=== PATIENT | male | born 1965 | race Caucasian/White ===

== ENCOUNTER 2024-02-03 19:58 | Emergency (ER) | payer BC, SELFPAY ==
[2024-02-03 19:59] VITALS: BP 128/86
[2024-02-03] MEDS: AUGMENTIN 875 MG/125 MG 1 TABLET PO (22:05)
--- NOTE | 2024-02-03 22:52 | ED.SKININJ ---
HPI-Injury
General
Chief Complaint: Bite
Source: patient and spouse
Exam Limitations: none
Time Seen by Provider: 02/03/24 21:05
Nursing documentation reviewed up to this point in time: agreed with
Travel History
Have you had any contact with someone who has COVID-19?: No
Do you have any symptoms of coronavirus? Fever > 100 degrees, chills, cough, shortness of breath, sore throat, loss of taste or smell, muscle aches, or headache?: No
History of Present Illness-Injury
Is this injury a work related problem?: No
Is pt an associate of [facility]?: No
Initial Injury comments:
58-year-old male with past medical history of hypertension previous heart attack with stent currently on Plavix presenting to the emergency department today with concerns of a dog bite to the right index finger as well as more superficial cuts to
the remainder of the hand. This occurred when his dog was approaching a neighbors dog there was a confrontation. The patient went to break up the fight of the dogs and was bit he is unsure if this was from his dog or the other dog's dog is
up-to-date with rabies vaccinations and he believes that the other dog likely was as well and is a domestic dog of one of his neighbors. He is able to follow-up with this dog for observation. He is not sure when his last tetanus shot was. He does
claim to have significant bleeding to the area and less he is directly holding pressure to the area.
Past History
Past History
ED Past Medical History: HTN, Hypercholesterolemia and IN
ED Past Surgical History: None
Social History
Tobacco: Former smoker
Alcohol: Occasional
Drug: None
Personal:
Living: with family
Review of Systems
Review of Systems
Allergies reviewed?: Yes
All Other Systems: ROS reviewed and negative except as documented in HPI and ROS
Phy Exam
Physical Exam
Physical Exam:
GENERAL: Alert , in no apparent distress
EYE: pupils equal and reactive
NECK: Supple, no significant adenopathy.
ENT: o/p clr, mmm.
CARDIAC: Normal distal perfusion
LUNGS: Clear breath sounds bilaterally, no acute respiratory distress, no wheezes/rales/rhonchi
ABDOMEN: Soft, without focal tenderness, no r/g, no cvat
NEUROLOGICAL: Alert and oriented, no focal neuro deficits
SKIN: Laceration 1.5 cm to the distal index finger just distal to the DIP on the palmar aspect. Explored to its base no foreign body warm and dry, skin intact.
MUSCULOSKELETAL: No edema, well perfused.
PSYCH: Normal and appropriate interaction.
Course
Orders/Labs/Results
Orders:
Orders
02/03/24 21:44
CR Hand - Right Min 3 Views Urgent
Comment:
Reason For Exam: dog bite
02/03/24 21:57
Amoxicillin 875 mg/Clav 125 mg [Augmentin 875 mg/125 mg] 1 tablet PO NOW STA
02/03/24 23:03
Tetanus/Diphth/Acelpertussis [Adacel] 0.5 ml IM .ONCE ONE
Vital Signs
Initial and Last Documented VS:
Initial Vital Signs
Temp Pulse Resp BP Pulse Ox
98.4 F 104 22 128/86 95
02/03/24 19:59 02/03/24 19:59 02/03/24 19:59 02/03/24 19:59 02/03/24 19:59
Last Documented Vital Signs
Temp Pulse Resp BP Pulse Ox
98.4 F 81 22 126/80 95
02/03/24 19:59 02/03/24 23:15 02/03/24 19:59 02/03/24 23:15 02/03/24 19:59
Procedures
Laceration Closure
Left Palmar Second Finger:
Status of Wound: clean
Size of Wound in cm: 1.5
Description of Wound Edges: sharp
Preparation: cleaned with saline
Anesthesia: 2% Lidocaine and Digital-Regional
Revision/Debridement: routine- no revision and irrigate-direct pressure
Wound exploration: explored to base- no FB and no tendon involvement
Type of Closure: single layer closure
Skin Closure Material: 4-0 chromic gut
Number of sutures: 3
MDM/Problems Addressed
MDM/Problems Addressed:
58-year-old male presenting to the emergency department today with concerns of dog bite to his left index finger as well as small cuts to the remainder of his hand. There was significant bleeding to the area this was sutured to control bleeding but
otherwise partially left open due to the potential infection risk of a dog bite. He was started immediately on Augmentin and x-ray was performed without signs of fracture. He was given a splint to help protect the area and was given very strict
return precautions for any signs of infection otherwise recommended for close outpatient follow-up. Return precautions given. He was given an updated tetanus shot. Patient very low risk for rabies will follow-up with the neighbors dog in regard
to to this.
*Critical Care Note
Total Time (30-74mins, 75-104mins- exclusive of procedures): Not Applicable
ED Attending Note
-
Portions of this chart may have been created with voice recognition software.� Occasional wrong word or��sound alike� substitutions may have occurred due to the inherent limitations of voice recognition software.
Discharge Plan
Departure
Patient Disposition: Home (Routine Discharge)
Date of Disposition: 02/03/24
Time of Disposition: 22:52
Patient with high blood pressure during this ER visit?: No
Condition: Good
Covid-19: Not Applicable
Discharge Problem:
Dog bite of finger
Instructions: Animal and human bites
Prescriptions:
New
amoxicillin-pot clavulanate 875-125 mg tablet
1 tab PO BID 3 Days Qty: 6 0RF
No Action
atorvastatin 40 MG tablet
40 mg PO QPM Qty: 30 11RF
aspirin 81 MG tablet,delayed release (DR/EC)
81 mg PO DAILY 0RF
candesartan 16 MG tablet
16 mg PO DAILY Qty: 30 11RF
metoprolol succinate 25 MG tablet extended release 24 hr
25 mg PO DAILY Qty: 30 11RF
ticagrelor [Brilinta] 90 MG tablet
90 mg PO 0600,1800 Qty: 60 11RF
famotidine 20 MG tablet
20 mg PO BID Qty: 28 0RF
Rx Instructions:
Take 20 mg twice a day for 14 days
ascorbic acid (vitamin C) [Vitamin C] 500 MG tablet
1,000 mg PO BID Qty: 56 0RF
Rx Instructions:
Take 1,000 mg twice a day for 14 days
aspirin 81 MG tablet,chewable
81 mg PO DAILY Qty: 14 0RF
Rx Instructions:
Take 81 mg daily for 14 days
zinc sulfate 220 MG capsule
220 mg PO DAILY Qty: 14 0RF
Rx Instructions:
Take 220 mg daily for 14 days
cholecalciferol (vitamin D3) 1,000 UNITS tablet
2,000 units PO DAILY Qty: 28 0RF
Rx Instructions:
Take 2,000 units daily for 14 days
melatonin 5 MG tablet
5 mg PO HS Qty: 14 0RF
Rx Instructions:
Take 5 mg daily at bedtime for 14 days
diazepam 5 mg tablet
5 mg PO TID PRN (Reason: muscle spasm) Qty: 10 0RF
diclofenac sodium 75 mg tablet,delayed release (DR/EC)
75 mg PO BID Qty: 20 0RF
Referrals:
Misbah Henao MD [Family Provider] -
Francisco Owens MD [Active] - As needed
Activity Restrictions/Additional Instructions:
You came to the emergency department today after dog bite to your finger. This does not appear to require a rabies vaccination. Otherwise your x-ray did not show any emergent findings your finger was cleaned and 3 sutures were placed. These are
absorbable. Please follow closely for reassessment to ensure this is not not showing any signs of infection. Return to the emergency department any worsening, new or concerning symptoms.
Interventions
Interventions:
*Risk Screen - Suicide Last Done: 02/03/24 19:59
*General Assessment Last Done: 02/03/24 22:09
*Neglect/Abuse Screening Last Done: 02/03/24 19:59
*ED COVID-19 Vaccine History Last Done: 02/03/24 22:09
*Nursing Disposition Last Done: 02/03/24 23:15
ED-Skin Assessment Last Done: 02/03/24 22:08
Discharge Date and Time
Discharge Date/Time: 02/03/24 23:15
[2024-02-03] MEDS: ADACEL 0.5 ML IM (23:10)
[2024-02-03 23:13] VITALS: BP 126/80
[2024-02-03 23:15] VITALS: BP 126/80
== END 2024-02-03 23:15 | disposition home or self-care (01) ==
LOC: EMR 19:58
PROVIDERS: EMERGENCY PHYSICIAN Emergency Medicine; FAMILY PHYSICIAN Family Medicine
DX: S61.259A Open bite of unspecified finger without damage to nail, initial encounter (principal); W54.0XXA Bitten by dog, initial encounter; Z23 Encounter for immunization; I10 Essential (primary) hypertension; E78.00 Pure hypercholesterolemia, unspecified; I25.2 Old myocardial infarction; Z79.02 Long term (current) use of antithrombotics/antiplatelets; Z87.891 Personal history of nicotine dependence
CPT/HCPCS: 99283; 12001; 90471; 73130; 90715

== ENCOUNTER → 2025-01-23 10:45 | Outpatient (REF) | payer BC, SELFPAY ==
[2025-01-23 11:23] LABS: % Basophils 0.6 % (0-2); % Eosinophils 1.8 % (0-6); % Immature Granulocytes 0.2 % (0-0.5); % Lymphocytes 32.1 % (20.5-51.1); % Monocytes 9.1 % (1.7-9.3); % Neutrophils 56.2 % (42.2-75.2); Absolute Eosinophils 0.1 10^3/uL (0-0.7); Absolute Monocytes 0.6 10^3/uL (0.1-0.6); Absolute Neutrophils 3.5 10^3/uL (1.4-6.5); Hematocrit 40.4 % (39.0-52.0); Hemoglobin 14.3 g/dL (13.0-18.0); Mean Corp Hgb Conc. 35.4 g/dL (33.0-37.0); Mean Corpuscular Hgb 30.6 pg (27.0-31.0); Mean Corpuscular Volume 86.3 fL (80.0-94.0); Mean Platelet Volume 10.2 fL (7.4-10.4); Nucleated Red Blood Cells % 0 % (-); Platelet Count 225 10^3/uL (130-400); Red Blood Cell Count 4.68 10^6/uL (4.70-6.10); Red Cell Dist. Width 13.2 % (11.5-14.5); White Blood Cell Count 6.2 10^3/uL (4.8-10.8)
[2025-01-23 11:54] LABS: ALT (SGPT) 102 U/L (0-50); AST (SGOT) 52 U/L (17-59); Alkaline Phosphatase 54 U/L (38-126); Blood Urea Nitrogen 23 mg/dl (9-20); Calcium 9.5 mg/dl (8.4-10.2); Carbon Dioxide 27 mmol/L (22-30); Chloride 101 mmol/L (98-107); Glucose 131 mg/dl (70-99); HDL Cholesterol 58 mg/dl; LDL Cholesterol, Calculated 121 mg/dl; Potassium 4.5 mmol/L (3.5-5.1); Sodium 138 mmol/L (135-145); Total Bilirubin 0.9 mg/dl (0.2-1.3); Total Cholesterol 210 mg/dl (50-199); Total Protein 7.5 g/dl (6.3-8.2); Triglyceride 155 mg/dl (10-149); Very Low Density Lipoprotein 31 mg/dl (0-30); eGFR > 60.00
[2025-01-23 12:24] LABS: PSA, Total - Screen 1.09 ng/ml (0.0-4.0); TSH Reflex To Free T4 2.19 uIU/ml (0.47-4.68)
[2025-01-23 12:46] LABS: Glycohemoglobin (HgbA1c) 8.3 % (4.0-5.6)
== END ==
LOC: REG 10:45
PROVIDERS: ATTENDING PHYSICIAN Nurse Practitioner Family
DX: I10 Essential (primary) hypertension (principal); I25.5 Ischemic cardiomyopathy; E78.00 Pure hypercholesterolemia, unspecified; R73.09 Other abnormal glucose
CPT/HCPCS: 36415; 80053; 80061; 83036; 84443; 85025; G0103

== ENCOUNTER 2025-09-17 01:27 | Emergency (ER) | payer BC, SELFPAY ==
[2025-09-17 01:33] VITALS: BP 155/106
--- NOTE | 2025-09-17 02:36 | ED.GENMED ---
History of Present Illness
General
Chief Complaint: Eye Problems
Source: patient and spouse
Exam Limitations: none
Time Seen by Provider: 09/17/25 01:40
Nursing documentation reviewed up to this point in time: agreed with
History of Present Illness
History of Present Illness:
59-year-old male presenting to the emergency department today with concerns of bilateral eye irritation and redness and tearing. He claims that he thinks things may have gotten into his eye when he was working on his son's car a few days ago.
Denies additional symptoms otherwise.
Past History
Past History
ED Past Medical History: HTN, Hypercholesterolemia and ME
ED Past Surgical History: None
Social History
Tobacco: Former smoker
Alcohol: Occasional
Drug: None
Personal:
Living: with family
Review of Systems
Review of Systems
Allergies reviewed?: Yes
All Other Systems: ROS reviewed and negative except as documented in HPI and ROS
Phy Exam
Physical Exam
Physical Exam:
GENERAL: Alert , in no apparent distress
EYE: Redness and irritation to the bilateral eyes right side worse than the left. Normal pupil reaction normal extraocular movements no redness or swelling of the surrounding tissue, pupils equal and reactive
NECK: Supple, no significant adenopathy.
ENT: o/p clr, mmm.
CARDIAC: Regular rate and rhythm .
LUNGS: Clear breath sounds bilaterally, no acute respiratory distress, no wheezes/rales/rhonchi
ABDOMEN: Soft, without focal tenderness, no r/g, no cvat
NEUROLOGICAL: Alert and oriented, no focal neuro deficits
SKIN: Warm and dry, skin intact.
MUSCULOSKELETAL: No edema, well perfused.
PSYCH: Normal and appropriate interaction.
Course
Orders/Labs/Results
Orders:
Orders
09/17/25 02:31
Erythromycin (Ilotycin) [Erythromycin 0.5% Ophthalmic Ointment] See Dose Instructions OPHTH NOW STA
Vital Signs
Initial and Last Documented VS:
Initial Vital Signs
Temp Pulse BP Pulse Ox
98.1 F 73 155/106 97
09/17/25 01:33 09/17/25 01:33 09/17/25 01:33 09/17/25 01:33
Last Documented Vital Signs
Temp Pulse Resp BP Pulse Ox
98.1 F 73 20 155/106 97
09/17/25 01:33 09/17/25 01:33 09/17/25 01:47 09/17/25 01:33 09/17/25 02:36
MDM/Problems Addressed
MDM/Problems Addressed:
59-year-old male presenting to the emergency department today with concerns of bilateral eye redness irritation and pain. Feels a foreign body to the right eye. Was working on a car a few days ago thinks things may have gotten into his eye. On
examination patient was found have a small foreign body to the right eye after lid eversion. Also appear to have potential superficial corneal abrasion on the right side. Left eye without signs of foreign body or corneal abrasion. He started on
erythromycin ointment. He did have complete resolution of pain after administration of tetra otherwise advised to see ophthalmology today for reassessment.
*Pulse Oximetry
SaO2: 97
Oxygen Mode of Delivery: Room air
Patient hypoxic: no (97)
*Critical Care Note
Total Time (30-74mins, 75-104mins- exclusive of procedures): Not Applicable
ED Attending Note
-
Portions of this chart may have been created with voice recognition software.� Occasional wrong word or��sound alike� substitutions may have occurred due to the inherent limitations of voice recognition software.
Discharge Plan
Departure
Patient Disposition: Home (Routine Discharge)
Date of Disposition: 09/17/25
Time of Disposition: 02:42
Patient with high blood pressure during this ER visit?: No
Condition: Good
Covid-19: Not Applicable
Discharge Problem:
Eye foreign body, Corneal abrasion
Instructions: How to Use Eye Drops, Foreign Body in Eye (DC)
Prescriptions:
No Action
atorvastatin 40 MG tablet
40 mg PO QPM Qty: 30 11RF
aspirin 81 MG tablet,delayed release (DR/EC)
81 mg PO DAILY 0RF
candesartan 16 MG tablet
16 mg PO DAILY Qty: 30 11RF
metoprolol succinate 25 MG tablet extended release 24 hr
25 mg PO DAILY Qty: 30 11RF
ticagrelor [Brilinta] 90 MG tablet
90 mg PO 0600,1800 Qty: 60 11RF
famotidine 20 MG tablet
20 mg PO BID Qty: 28 0RF
Rx Instructions:
Take 20 mg twice a day for 14 days
ascorbic acid (vitamin C) [Vitamin C] 500 MG tablet
1,000 mg PO BID Qty: 56 0RF
Rx Instructions:
Take 1,000 mg twice a day for 14 days
aspirin 81 MG tablet,chewable
81 mg PO DAILY Qty: 14 0RF
Rx Instructions:
Take 81 mg daily for 14 days
zinc sulfate 220 MG capsule
220 mg PO DAILY Qty: 14 0RF
Rx Instructions:
Take 220 mg daily for 14 days
cholecalciferol (vitamin D3) 1,000 UNITS tablet
2,000 units PO DAILY Qty: 28 0RF
Rx Instructions:
Take 2,000 units daily for 14 days
melatonin 5 MG tablet
5 mg PO HS Qty: 14 0RF
Rx Instructions:
Take 5 mg daily at bedtime for 14 days
diazepam 5 mg tablet
5 mg PO TID PRN (Reason: muscle spasm) Qty: 10 0RF
diclofenac sodium 75 mg tablet,delayed release (DR/EC)
75 mg PO BID Qty: 20 0RF
amoxicillin-pot clavulanate 875-125 mg tablet
1 tab PO BID 3 Days Qty: 6 0RF
Referrals:
Christian Stanton I., DO [Family Provider, Internal Medicine]
Activity Restrictions/Additional Instructions:
You came to the emergency department today with concerns of irritation to your eye. You are found have a small foreign body that was removed. You could also have a superficial corneal abrasion. Please use the erythromycin eye ointment and
follow-up closely with the eye doctor. Return for any worsening, new or concerning symptoms.
Interventions
Interventions:
*Risk Screen - Suicide Last Done: 09/17/25 01:33
*General Assessment Last Done: 09/17/25 01:33
*Neglect/Abuse Screening Last Done: 09/17/25 01:33
*ED- Fall Risk Assessment Last Done: 09/17/25 01:33
*ED COVID-19 Vaccine History Last Done: 09/17/25 01:33
*ED Influenza Vaccine History Last Done: 09/17/25 01:33
Discharge Date and Time
Print Language: [id number]
[2025-09-17] MEDS: ERYTHROMYCIN 0.5% OPHTHALMIC OINTMENT 1 APPLIC OPHTH (03:09)
== END 2025-09-17 03:13 | disposition home or self-care (01) ==
LOC: EMR 01:27
PROVIDERS: EMERGENCY PHYSICIAN Student in an Organized Health Care Education/Training Program; FAMILY PHYSICIAN Internal Medicine
DX: S05.00XA Injury of conjunctiva and corneal abrasion without foreign body, unspecified eye, initial encounter (principal); W44.9XXA Unspecified foreign body entering into or through a natural orifice, initial encounter; H57.13 Ocular pain, bilateral; I10 Essential (primary) hypertension; E78.00 Pure hypercholesterolemia, unspecified; I25.2 Old myocardial infarction; Z87.891 Personal history of nicotine dependence
CPT/HCPCS: 99282

== ENCOUNTER → 2025-10-23 09:25 | Outpatient (REF) | payer BC, SELFPAY ==
[2025-10-23 11:02] LABS: ALT (SGPT) 92 U/L (0-50); AST (SGOT) 47 U/L (17-59); Albumin 4.9 g/dl (3.5-5.0); Alkaline Phosphatase 55 U/L (38-126); Blood Urea Nitrogen 25 mg/dl (9-20); Calcium 9.3 mg/dl (8.4-10.2); Carbon Dioxide 25 mmol/L (22-30); Chloride 102 mmol/L (98-107); Glucose 127 mg/dl (70-99); HDL Cholesterol 61 mg/dl; LDL Cholesterol, Calculated 149 mg/dl; Potassium 4.4 mmol/L (3.5-5.1); Sodium 137 mmol/L (135-145); Total Protein 7.8 g/dl (6.3-8.2); Very Low Density Lipoprotein 29 mg/dl (0-30); eGFR > 60.00
[2025-10-23 11:19] LABS: Microalbumin, Random Urine 5.5 mg/dl (0.6-1.7)
[2025-10-23 11:27] LABS: TSH 3.92 uIU/ml (0.47-4.68)
[2025-10-23 12:06] LABS: Glycohemoglobin (HgbA1c) 7.4 % (4.0-5.9)
== END ==
LOC: REG 09:25
PROVIDERS: ATTENDING PHYSICIAN Nurse Practitioner Family; FAMILY PHYSICIAN Nurse Practitioner Family
DX: E11.65 Type 2 diabetes mellitus with hyperglycemia (principal); I10 Essential (primary) hypertension
CPT/HCPCS: 36415; 80053; 80061; 82043; 82570; 83036; 84439; 84443